=== PATIENT | female | born 1980 | race Caucasian/White ===

== ENCOUNTER → 2021-05-18 09:02 | Outpatient (BNVA) | payer OTHER, SELFPAY | PROVIDERS: PCP Internal Medicine; Visit Provider Psychiatry & Neurology Neurology | DX: G43.909 Migraine, unspecified, not intractable, without status migrainosus (principal); M54.2 Cervicalgia; R06.83 Snoring; D68.51 Activated protein C resistance | CPT/HCPCS: 99212 ==

== ENCOUNTER → 2021-07-18 07:51 | Outpatient (BNVA) | payer OTHER, SELFPAY | PROVIDERS: PCP Internal Medicine; Visit Provider Nurse Practitioner Family | DX: G43.909 Migraine, unspecified, not intractable, without status migrainosus (principal); M54.2 Cervicalgia | CPT/HCPCS: 99212 ==

== ENCOUNTER 2021-11-20 10:58 | Emergency (ER) | payer OTHER, SELFPAY ==
--- NOTE | ~2021-11-20 | US_ITS ---
EXAMINATION: US VENOUS ULTRASOUND WITH DOPPLER LOWER EXTREMITY, LEFT CLINICAL INFORMATION: Pain and swelling evaluate for DVT history factor V Leiden COMPARISON: None TECHNIQUE: Ultrasound of the deep veins is performed from the hip to the calf with compression sonography and color and pulse Doppler assessment. Spectral analysis with color-flow imaging is performed. FINDINGS: There is normal venous compression and respiratory variation and augmented flow. The visualized common femoral vein, superficial femoral vein, profunda femoral vein, popliteal vein, and the trifurcation region shows no evidence of deep venous thrombosis. There is no significant popliteal fossa cyst. If the patient's symptoms persist, followup ultrasound in 5 days 7 days might be of value to exclude proximal propagation from a non-visualized calf vein. US/US venous duplex LE LT IMPRESSION: No DVT demonstrated in the left lower extremity.
[2021-11-20 11:01] VITALS: BP 122/78; PULSE 77; RESP 18; TEMP 36.4; O2SAT 100; BMI 26.6
== END 2021-11-20 15:56 | disposition left against medical advice (07) ==
PROVIDERS: Emergency Provider Emergency Medicine; PCP Internal Medicine
DX: R60.0 Localized edema (principal); M79.605 Pain in left leg
CPT/HCPCS: 93971; 99281; 99283; 99284

== ENCOUNTER → 2022-08-02 09:14 | Outpatient (BNVA) | payer OTHER, SELFPAY | PROVIDERS: PCP Internal Medicine; Visit Provider Nurse Practitioner Family | DX: G43.909 Migraine, unspecified, not intractable, without status migrainosus (principal); M54.2 Cervicalgia | CPT/HCPCS: 99212 ==

== ENCOUNTER → 2022-08-12 13:26 | Outpatient (BNVA) | payer OTHER, SELFPAY | PROVIDERS: PCP Internal Medicine; Visit Provider Nurse Practitioner Family | DX: G43.909 Migraine, unspecified, not intractable, without status migrainosus (principal); Z71.89 Other specified counseling | CPT/HCPCS: 99211 ==

== ENCOUNTER 2024-04-10 09:56 | Emergency (ER) | payer OTHER, SELFPAY ==
--- NOTE | ~2024-04-10 | US_ITS ---
CLINICAL HISTORY: RLQ tenderness c f torsion US pelvis transabdominal and transvaginal with Doppler Comparison: None Findings: Transabdominal scanning performed for overall anatomy. Transvaginal scanning performed for additional detail. Anteverted uterus is 7.8 cm length. Normal myometrium. Endometrium 9.0 mm thickness. Right ovary 3.5 x 2.2 x 2.0 cm. Left ovary 2.2 x 2.0 x 2.1 cm. Normal color Doppler with arterial/venous spectral tracing of both ovaries. No free fluid. IMPRESSION: 1. Unremarkable pelvic ultrasound with no evidence of ovarian torsion. This document has been electronically signed by: Beau De La Cruz MD on 04/10/2024 11:54:57
--- NOTE | ~2024-04-10 | CT_ITS ---
CLINICAL HISTORY: RLQ tenderness, vomiting CT abdomen and pelvis with contrast Comparison: None Findings: The lung bases are clear. Unremarkable gallbladder and solid organs. No urolithiasis. No bowel obstruction, pneumoperitoneum, or pneumatosis. Pelvic contents unremarkable. Normal appendix. The bones are intact. IMPRESSION: No acute findings. This document has been electronically signed by: Beau De La Cruz MD on 04/10/2024 11:29:12
[2024-04-10 09:59] VITALS: BP 126/81; PULSE 96; RESP 19; TEMP 36.6; O2SAT 98; BMI 23.3
[2024-04-10 10:15] LABS: MANUAL DIFF FLAG NO
[2024-04-10 10:19] LABS: Appearance Urine Clear; Color Urine Dark Yellow; Glucose Urine UA Negative (Negative); Leukocyte Esterase Urine Negative (Negative); Nitrite Urine Negative (Negative); Specific Gravity - Urine 1.025 (1.005-1.025); Urine Blood Negative (Negative); Urine Ketones 80 mg/dL (Negative); Urine Protein Trace mg/dL (Neg-Trace)
[2024-04-10 10:20] LABS: Basophils Percent Auto 0.2 % (0-2); Eosinophils Percent Auto 0.1 % (0-4); Hematocrit 41.6 % (37.0-47.0); Hemoglobin 14.3 g/dl (12.0-16.0); Imm Gran Abs Auto 0.04 X10*3/uL (0.00-0.03); Imm Gran Pct Auto 0.4 % (0.0-0.4); Lymphocytes Absolute Auto 0.9 X10*3/uL (1.2-4.9); Mean Corpuscular HGB Conc 34.4 g/dl (31.0-35.0); Mean Corpuscular Hemoglobin 31.2 pg (27.0-33.0); Mean Corpuscular Volume 90.8 fL (80.0-98.0); Mean Platelet Volume 9.4 fL (9.4-12.3); Monocytes Absolute Auto 0.5 X10*3/uL (0.1-1.2); Monocytes Percent Auto 4.7 % (2-11); Neutrophils Absolute Auto 8.6 x10*3/uL (2.0-8.3); Neutrophils Percent Auto 85.6 % (45-73); Platelet Count 343 X10*3/uL (160-400); Red Blood Count 4.58 X10*6/uL (4.20-5.50); Red Cell Distribution Width 12.4 % (11.0-16.0)
[2024-04-10 10:27] LABS: UPreg QC Valid YES; Urine Pregnancy NEGATIVE (NEGATIVE)
--- NOTE | 2024-04-10 10:30 | ED.GENADULT ---
HPI - General Adult General Chief complaint: Abdominal Pain Stated complaint: R side abd pain, vomiting Time Seen by Provider: 04/10/24 10:15 Source: patient, RN notes reviewed and old records reviewed Mode of arrival: ambulatory Limitations: no limitations History of Present Illness ED Provider: [facility] narrative: Patient is a 43-year-old female with history of Factor V Leiden, anemia, emphysema lung, cholecystectomy presenting to the emergency department with complaint of right lower quadrant abdominal pain as well as nausea and vomiting since yesterday. States everyone in her household has recently had flu-like symptoms as well. She went to urgent care yesterday and tested negative for COVID, flu, RSV. States she was unable to tolerate any fluids overnight. Attempted to go to drill this morning but was advised to seek medical evaluation due to her right lower quadrant pain. Denies fevers. Denies hematemesis. Denies diarrhea. MD complaint: abdominal pain Onset (ago): day(s) Location: abdomen Radiation: non-radiation Severity: severe Quality: aching Pain Consistency: constant Associated symptoms: nausea/vomiting Treatments prior to arrival: none Related Data Previous Rx's ?Medication ?Instructions ?Recorded galcanezumab-gnlm 120 mg/mL 120 mg subcut ONCE 30 days #30 mL 08/02/22 subcutaneous pen injector (Emgality Pen) ondansetron 4 mg disintegrating 4 mg PO Q8H PRN nausea and 04/10/24 tablet vomiting #10 tabs Allergies Allergy/AdvReac Type Severity Reaction Status Date / Time No Known Allergies Allergy Verified 04/10/24 10:00 Review of Systems Review of Systems: As per HPI Yes all other systems are reviewed and are negative Constitutional: Constitutional: Reports as per HPI [facility] Past Medical History Medical History Anemia Anxiety Depression Emphysema lung Kidney stone Pulmonary nodule Sinusitis Snoring Substance abuse Surgical History Hx of cholecystectomy Family History Family History Mother High cholesterol Hypothyroidism Factor 5 Leiden mutation, heterozygous Father Diabetes Cirrhosis Social History Social History (Updated 08/12/22 @ 13:33 by Stephany Mustafa CMA) Household Members: Family and Children Housing: House Alcohol intake: current Alcohol intake frequency: holidays/special occasions only Patient Tobacco Use Status: Former Tobacco user Smoked in Last 30 Days: No Use of substances other than those prescribed or required for medical reasons: No Advance Directives: No Advance Directives Information Provided: Yes Do you have a plan to hurt others: No Plan Patient : No Physical Exam ED Vital Signs: Vital Signs - 24 hr 04/10/24 09:59 Temperature 98 F Pulse Rate 96 Respiratory Rate 19 Blood Pressure 126/81 Pulse Oximetry 98 Oxygen Delivery Method Room Air BMI result Body Mass Index 23.3 Vital signs have been reviewed and appear to be correct. Blood pressure normal. Heart rate normal. Respiratory rate normal. Temperature normal. Oxygen saturation normal. Const General: cooperative, healthy appearing and no acute distress Orientation/consciousness: oriented to person, oriented to place, oriented to time and patient oriented x3 Limitations: no limitations HENMT Head: Yes normocephalic and Yes atraumatic Ears: external ears normal General nose exam: Normal external nose present Face and sinus: Yes face symmetric Mouth: oropharynx normal and moist mucous membranes Throat: Yes uvula midline Eyes Pupils: Equal, round and reactive pupils present Neck Neck: Yes normal visual inspection and Yes supple Resp Effort & Inspection: normal respiratory effort and able to speak in complete sentences Auscultation: clear to auscultation bilaterally Cardio Rate: regular rate Rhythm: regular rhythm Heart sounds: S1 normal heart sound present and S2 normal heart sound present GI Palpation (GI): Soft to palpation, Tenderness to palpation present (GI) in the RLQ and at McBurney's point, no guarding and No Rebound tenderness present Auscultation: normoactive bowel sounds General: Yes no CVA tenderness Back/Spine/Pelvis Back: no CVA tenderness Skin General skin exam: elasticity normal and turgor normal Neuro General: oriented to person, oriented to place, oriented to time, patient oriented x3, moves all extremities, no focal motor deficits and CN's II-XI intact bilaterally Cranial nerves: Yes Equal, round and reactive pupils present Cognition (Neuro): normal cognition Extrem General: Yes full ROM, Yes no pedal edema and Yes no calf tenderness Psych Mental Status: mental status grossly normal Affect: normal affect Thought process: Normal thought process present Medications Administered Discontinued Medications Generic Name Dose Route Start Last Admin Trade Name Freq PRN Reason Stop Dose Admin Iohexol 100 ml 04/10/24 10:59 04/10/24 10:59 Iohexol 350 Mg/Ml 100 Ml Infus..Btl IV 04/10/24 11:00 85 ml ONCE ONE Administration Medical Decision Making Medical Decision Making [facility] Narrative: Patient is a 43-year-old female with history of Factor V Leiden, anemia, emphysema lung, cholecystectomy presenting to the emergency department with complaint of right lower quadrant abdominal pain as well as nausea and vomiting since yesterday. On exam patient is awake, A+Ox3, VS WNL, afebrile, normal neurological exam without focal deficits, physical exam findings as above. Given reported symptoms and physical exam findings, initial differential includes but is not limited to appendicitis, ovarian cyst, ovarian torsion. Labs notable for no leukocytosis, no anemia. No evidence of infection on urinalysis. Ultrasound notable for no evidence of torsion or ovarian cyst or uterine fibroid. CT abdomen pelvis is without evidence of appendicitis, obstructing calculi, hydronephrosis. My interpretation is in agreement with the radiologist's interpretation. Results discussed with patient all questions answered. Will send prescription for Zofran. Strict return precautions discussed with patient at bedside. Patient verbalized understanding of and agreement with plan. Differential Diagnosis Differential Diagnoses: The differential diagnosis associated with the presentation includes As per [facility] Admission/Observation Consideration of admission/observation: Escalation of care including admission/observation considered Patient would have been admitted to the hospital had their work up had any findings where hospital admission was appropriate and their clinical presentation warranted hospital admission. Lab Data [facility] Lab Attestation statement: I reviewed the patient's lab results. As per [facility] 04/10/24 10:10 04/10/24 10:10 Labs: Lab Results 04/10/24 Range/Units 10:10 WBC 10.0 (4.8-10.8) X10*3/uL RBC 4.58 (4.20-5.50) X10*6/uL Hgb 14.3 (12.0-16.0) g/dl Hct 41.6 (37.0-47.0) % MCV 90.8 (80.0-98.0) fL MCH 31.2 (27.0-33.0) pg MCHC 34.4 (31.0-35.0) g/dl RDW 12.4 (11.0-16.0) % Plt Count 343 (160-400) X10*3/uL MPV 9.4 (9.4-12.3) fL Immature Gran % (Auto) 0.4 (0.0-0.4) % Neut % (Auto) 85.6 H (45-73) % Lymph % (Auto) 9.0 L (20-40) % Dunn % (Auto) 4.7 (2-11) % Eos % (Auto) 0.1 (0-4) % Baso % (Auto) 0.2 (0-2) % Lymph # (Auto) 0.9 L (1.2-4.9) X10*3/uL Dunn # (Auto) 0.5 (0.1-1.2) X10*3/uL Eos # (Auto) 0.0 (0.0-0.4) X10*3/uL Baso # (Auto) 0.0 (0.0-0.2) X10*3/uL Abs Immat Gran (auto) 0.04 H (0.00-0.03) X10*3/uL Absolute Neuts (auto) 8.6 H (2.0-8.3) x10*3/uL Absolute Nucleated RBC 0.000 (0.0-0.012) X10*3/uL Nucleated RBC % (auto) 0.0 (0.0-0.2) /100WBC Sodium 137 (135-145) mmol/L Potassium 3.4 (3.3-5.1) mmol/L Chloride 101 (96-108) mmol/L Carbon Dioxide 25 (22-29) mmol/L Anion Gap 14 (12-20) BUN 12 (9-16) mg/dL Creatinine 0.83 (0.5-1.4) mg/dL Estim Creat Clear Calc 77.8 Estimated GFR > 60 Random Glucose 82 (60-115) mg/dL Calcium 9.4 (8.4-10.2) mg/dL Total Bilirubin 1.4 H (0.0-1.0) mg/dL Direct Bilirubin 0.4 (0.0-0.5) mg/dL AST 31 (5-31) U/L ALT 29 (0-31) U/L Alkaline Phosphatase 69 (39-117) U/L Total Protein 8.3 H (6.5-8.0) g/dL Albumin 4.5 (3.5-5.0) g/dL Lipase 8 (8-78) U/L Urine Color Dark Yellow Urine Appearance Clear Urine pH 6.0 (5.0-9.0) Ur Specific [place] 1.025 (1.005-1.025) Urine Protein Trace (Neg-Trace) mg/dL Urine Glucose (UA) Negative (Negative) mg/dL Urine Ketones 80 (Negative) mg/dL Urine Blood Negative (Negative) Urine Nitrite Negative (Negative) Ur Leukocyte Esterase Negative (Negative) Urine Test NEGATIVE (NEGATIVE) Independent Interpretation I performed an independent interpretation of an: Ultrasound and CT Scan Interpretation: Ultrasound notable for no evidence of torsion or ovarian cyst or uterine fibroid. CT abdomen pelvis is without evidence of appendicitis, obstructing calculi, hydronephrosis. Radiology Impression Discussion of test interpretation with radiology: I have reviewed the radiologist's reading. Radiologist Impression: Findings: Transabdominal scanning performed for overall anatomy. Transvaginal scanning performed for additional detail. Anteverted uterus is 7.8 cm length. Normal myometrium. Endometrium 9.0 mm thickness. Right ovary 3.5 x 2.2 x 2.0 cm. Left ovary 2.2 x 2.0 x 2.1 cm. Normal color Doppler with arterial/venous spectral tracing of both ovaries. No free fluid. IMPRESSION: 1. Unremarkable pelvic ultrasound with no evidence of ovarian torsion. Findings: The lung bases are clear. Unremarkable gallbladder and solid organs. No urolithiasis. No bowel obstruction, pneumoperitoneum, or pneumatosis. Pelvic contents unremarkable. Normal appendix. The bones are intact. IMPRESSION: No acute findings. External Record Review External record reviewed: Inpatient record, Office record and Outpatient record Prescription Management I considered prescription management with: Other Discharge Plan Discharge Clinical Impression: Abdominal pain Patient Disposition: Home, Self-Care Instructions: Acute Abdominal Pain (DC), Abdominal Pain (ED) Additional Instructions: You have been evaluated in the emergency department today for abdominal pain. Your evaluation did not show evidence of medical conditions requiring emergent intervention at this time. Please schedule an appointment with your primary care physician. Return to the emergency department if you experience worsening or uncontrolled pain, fevers 100.4? F or greater, recurrent vomiting, inability to tolerate food or fluids by mouth, bloody stools or vomit, black or tarry stools, or any other concerning symptoms. You are being prescribed ondansetron which you can use every 8 hours as needed for nausea/vomiting. Prescriptions: New ondansetron 4 mg tablet,disintegrating 4 mg PO Q8H PRN (Reason: nausea and vomiting) Qty: 10 0RF No Action Emgality Pen 120 mg/mL pen injector 120 mg subcut ONCE 30 Days Qty: 30 5RF Print Language: Guatemalan
[2024-04-10 10:31] LABS: Alanine Aminotransferase 29 U/L (0-31); Albumin Level 4.5 g/dL (3.5-5.0); Anion Gap 14 (12-20); Aspartate Amino Transferase 31 U/L (5-31); Bilirubin Direct 0.4 mg/dL (0.0-0.5); Bilirubin Total 1.4 mg/dL (0.0-1.0); Blood Urea Nitrogen 12 mg/dL (9-16); Calcium 9.4 mg/dL (8.4-10.2); Carbon Dioxide 25 mmol/L (22-29); Chloride 101 mmol/L (96-108); Creatinine Clr Calc Pharmacy 77.8; Estimated Glomerular Filt Rate > 60; Glucose Random 82 mg/dL (60-115); Lipase 8 U/L (8-78); Potassium 3.4 mmol/L (3.3-5.1); Sodium 137 mmol/L (135-145); Total Protein 8.3 g/dL (6.5-8.0)
[2024-04-10 10:46] LABS: Alkaline Phosphatase 69 U/L (39-117)
--- NOTE | 2024-04-10 10:50 | PC.NURSE ---
Pt taken to ultrasound at this time.
[2024-04-10] MEDS: iohexoL 350 MG/ML 100 ML INFUS..BTL IV (10:59)
[2024-04-10 12:33] VITALS: BP 122/76; PULSE 82; RESP 19; TEMP 36.7; O2SAT 99
[2024-04-10] MEDS: Ondansetron ODT 4 MG TAB.RAPDIS TRANSLINGU (12:33)
[2024-04-10 12:34] VITALS: BP 122/76; PULSE 82; RESP 19; TEMP 36.7; O2SAT 99
== END 2024-04-10 12:35 | disposition home or self-care (01) ==
PROVIDERS: Emergency Provider Emergency Medicine; PCP Internal Medicine
DX: R10.31 Right lower quadrant pain (principal); R11.2 Nausea with vomiting, unspecified
CPT/HCPCS: 36415; 74177; 76830; 76856; 80048; 80076; 81003; 81025; 83690; 85025; 93975; 99284; Q9967

== ENCOUNTER → 2024-04-10 10:42 | Outpatient (BNV) | payer OTHER, SELFPAY | PROVIDERS: Emergency Provider Emergency Medicine; PCP Internal Medicine; Visit Provider Specialist | DX: R10.31 Right lower quadrant pain (principal) | CPT/HCPCS: 74177; 76830; 76856; 93975 ==